=== PATIENT | female | born 1985 | race Caucasian/White ===

== ENCOUNTER 2016-11-14 11:00 | Day surgery (SDC) | payer OTHER ==
[2016-11-13 11:09] VITALS: BMI 24.9
[2016-11-14] VITALS (16 sets, daily range): BP systolic 103–118; BP diastolic 56–74; PULSE 60–84; RESP 8–63; Ht 170.2 cm; Wt 71.6 kg
[~2016-11-14] VITALS: Ht 170.2 cm; Wt 71.6 kg
[2016-11-14] MEDS ORDERED: LACTATED RINGER'S 1,000 ML IV SCH (12:00)
[2016-11-14 12:19] LABS: ADD SCAN DIFF NO
[2016-11-14 12:25] LABS: BASOPHILS % 0.5 % (0.0-2.0); EOSINOPHILS % 0.4 % (0.0-7.0); HEMOGLOBIN 12.7 g/dl (12.0-16.0); LYMPHOCYTES # 2.9 10^3/ul (0.8-2.9); LYMPHOCYTES % 38.7 % (15.0-51.0); MEAN CORPUSCULAR HEMOGLOBIN 29.3 pg (29.0-33.0); MEAN CORPUSCULAR HGB CONC 32.6 g/dl (32.0-37.0); MEAN CORPUSCULAR VOLUME 90.1 fl (82.0-101.0); MEAN PLATELET VOLUME 9.3 fl (7.4-10.4); MONOCYTE # 0.4 10^3/ul (0.3-0.9); MONOCYTES % 5.2 % (0.0-11.0); NEUTROPHILS % 54.9 % (39.0-77.0); PLATELET COUNT 289 10^3/UL (140-415); RED BLOOD COUNT 4.33 10^6/ul (4.20-5.40); RED CELL DISTRIBUTION WIDTH 13.2 % (11.5-14.5); WHITE BLOOD COUNT 7.4 10^3/ul (4.8-10.8)
[2016-11-14] MEDS ORDERED: LIDOCAINE 2% (SDV) 5 ML INJ ONE ×2 (12:29→14:42)
[2016-11-14] MEDS ORDERED: PROPOFOL 20 ML ONE ×2 (12:29→14:42)
[2016-11-14] MEDS ORDERED: GLYCOPYRROLATE 0.4 MG INJ ONE ×2 (12:29→14:42)
[2016-11-14] MEDS ORDERED: NEOSTIGMINE 3 MG/3 ML SYRINGE ONE ×2 (12:29→14:42)
[2016-11-14] MEDS ORDERED: ROCURONIUM 50 MG INJ ONE ×2 (12:29→14:42)
[2016-11-14] MEDS ORDERED: MIDAZOLAM 1 MG/ML 2 ML INJ ONE (12:29)
[2016-11-14] MEDS ORDERED: FENTAnyl 50 MCG/ML VIAL ONE (12:29)
[2016-11-14] MEDS ORDERED: ATROPINE 1 MG/10 ML SYRINGE IV PRN (12:30)
[2016-11-14] MEDS ORDERED: ONDANSETRON 4 MG INJ IV PRN ×2 (12:30→15:00)
[2016-11-14] MEDS ORDERED: FENTAnyl 50 MCG/ML VIAL IV PRN ×2 (12:30)
[2016-11-14] MEDS ORDERED: EPHEDrine SULFATE 50 MG/5 ML SYG IV PRN (12:30)
[2016-11-14] MEDS ORDERED: morphine (1 MG/ML) 10ML SYRINGE IV PRN ×3 (12:30)
[2016-11-14] MEDS ORDERED: OXYCODONE/ACETAMINOPHEN (5/325) TAB PO PRN ×3 (12:30→15:00)
[2016-11-14] MEDS ORDERED: DIPHENHYDRAMINE 50 MG INJ IV PRN (12:30)
[2016-11-14] MEDS ORDERED: hydrALAzine 20 MG INJ IV PRN (12:30)
[2016-11-14] MEDS ORDERED: MIDAZOLAM 1 MG/ML 2 ML INJ IV PRN (12:30)
[2016-11-14] MEDS ORDERED: HYDROmorphONE (0.2 MG/ML) 10ML SYG IV PRN ×3 (12:30)
[2016-11-14] MEDS ORDERED: LABETALOL HCL 20MG INJ IV PRN (12:30)
[2016-11-14] MEDS ORDERED: BUPIVACAINE 0.5%/EPI (SDV) 30 ML INJ ONE (12:58)
[2016-11-14] MEDS ORDERED: SUCCINYLCHOLINE CHLORIDE 100 MG/5 ML SYG IV ONE (13:01)
[2016-11-14] MEDS ORDERED: ONDANSETRON 4 MG INJ ONE (13:02)
[2016-11-14] MEDS ORDERED: DEXAMETHASONE 4 MG/ML 1 ML INJ ONE (13:02)
[2016-11-14] MEDS ORDERED: FLUMAZENIL 0.5 MG INJ ONE (14:43)
[2016-11-14] MEDS ORDERED: KETOROLAC 30 MG INJ IV PRN (15:00)
[2016-11-14] MEDS: MEPERIDINE 25 MG INJ IV PRN ×2 (15:00→15:32)
[2016-11-14] MEDS ORDERED: morphine 2 MG INJ IV PRN (15:00)
--- NOTE | 2016-11-14 18:59 | PREOPHP ---
DATE OF ADMISSION: 11/14/2016 HISTORY OF PRESENT ILLNESS: A 31-year-old female 4, para 4, last menstrual period admitted for voluntary sterilization. PAST MEDICAL HISTORY: Unremarkable. PAST SURGICAL HISTORY: section. ALLERGIES: NO KNOWN ALLERGIES. FAMILY HISTORY: Noncontributory. PHYSICAL EXAMINATION: VITAL SIGNS: The patient is afebrile. Vital signs stable. HEAD, NECK AND CHEST: Within normal limits. ABDOMEN: Soft, nontender, nondistended. PELVIC: Normal. EXTREMITIES: Within normal limits. NEUROLOGIC: Within normal limits. IMPRESSION: Voluntary sterilization. PLAN: Minilaparotomy, bilateral tubal ligation. The risks, benefits and alternatives of the proced ure were explained to the patient. The patient said she understood and gave informed consent for th e procedure. The patient has been counseled about all of her contraceptive options. It was explain ed to patient that with bilateral tubal ligation, there is a chance of failure resulting in ectopic and/or intrauterine . After counseling, the patient said she understood and gave informed consent for the procedure. Dictated By: LUIS ANTONIO ANDERSON/GABI Conf#: [id number] DID#: [id number]
--- NOTE | 2016-11-15 06:46 | OPR ---
DATE OF OPERATION: 11/14/2016 PREOPERATIVE DIAGNOSIS: Voluntary sterilization. POSTOPERATIVE DIAGNOSIS: Voluntary sterilization. OPERATION: Minilaparotomy, bilateral tubal ligation. SURGEON: Dr. Luis Antonio Byers. SKIN PILER: wellfield technician. ANESTHESIA: General. ANESTHESIOLOGIST: Dr. Posada. PROCEDURE: The patient was taken to the operating room and placed on the operating table in supine position. After adequate general anesthesia was given, the area was prepared and draped in the usua l sterile fashion. Using a scalpel, Pfannenstiel incision was made about 2 fingerbreadths above the symphysis pubis. The incision was carried to the fascia. The fascia was incised and extended bila terally with Bovie. Two Kochers were used to separate the fascia from the muscle. The muscle was d issected down to peritoneum. The peritoneum was secured with Kellys and incised with Metzenbaum sci ssors. We continued entering the peritoneal cavity. The right fallopian tube was grasped with a Ba bcock clamp and followed to its fimbrial end to confirm its identity. Using 0 plain suture ligature , a 5 cm segment of the right fallopian tube was doubly ligated. Using Metzenbaum scissors, a porti on of the right fallopian tube above the ligated area was excised and sent to pathology. Same proce dure was repeated on the left fallopian tube. After assuring hemostasis, the peritoneum was closed with 0 chromic continuous. Fascia was closed with 0 Vicryl continuous. Subcutaneous tissue was pennie pproximated with 2-0 chromic. The skin was closed with zeke. ESTIMATED BLOOD LOSS: Minimal. COMPLICATIONS: None. COUNTS: All counts were correct. Dictated By: LUIS ANTONIO ANDERSON/GABI Conf#: [id number] DID#: [id number]
== END 2016-11-14 17:53 | disposition home or self-care (01) ==
LOC: SDS 11:00
PROVIDERS: ATTEND Obstetrics & Gynecology
DX: Z30.2 Encounter for sterilization (principal)
CPT/HCPCS: 58600; 85025; 86850; 86870; 86900; 86901; 88302; J1100; J2175; J2250; J2405; J2710; J3010; J7999; Z7512; Z7610